=== PATIENT | female | born 1990 | race American Indian/Alaskan Native ===

== ENCOUNTER 2021-04-06 22:06 | Emergency (ER) | payer OTHER, SELFPAY ==
--- NOTE | 2021-04-06 23:13 | Emergency Department Report ---
HPI - General Chief Complaint: Psych Time Seen by Provider: 04/06/21 22:19 - HPI HPI: This is a 30-year-old -Croatian female presents to the emergency department for what appears to be a mental health evaluation. Patient says that she came by EMS after she was found wandering around on the street. Patient admits to "drinking all day" but is asking for a mental health evaluation. She also admits to being , somewhere in the first trimester. The patient is not very forthcoming with information. She has never been to this emergency d epartment previously. Patient admits to a history of schizophrenia and some nonspecific hallucinations. She denies any suicidal or homicidal ideations. ED Review of Systems ROS: Stated complaint: MH EVAL Other details as noted in HPI Comment: All other systems reviewed and negative Constitutional: denies: chills, fever Eyes: denies: eye pain, vision change ENT: denies: ear pain, throat pain Respiratory: denies: cough, shortness of breath Cardiovascular: denies: chest pain, palpitations Gastrointestinal: denies: abdominal pain, vomiting Genitourinary: denies: dysuria, discharge Musculoskeletal: denies: back pain, arthralgia Skin: denies: rash, lesions Neurological: denies: headache, weakness Psychiatric: denies: homicidal thoughts, suicidal thoughts Physical Exam - Physical Exam Physical Exam: GENERAL: The patient is well-developed well-nourished. HENT: Normocephalic. Atraumatic. Patient has moist mucous membranes. EYES: Extraocular motions are intact. NECK: Supple. Trachea is midline. CHEST/LUNGS: Clear to auscultation. There is no respiratory distress noted. HEART/CARDIOVASCULAR: Regular. There is no tachycardia. There is no murmur. ABDOMEN: Abdomen is soft, nontender. Patient has normal bowel sounds. SKIN: Skin is warm and dry. NEURO: The patient is very sleepy, but is easily arousable. She is cooperative and follows commands. MUSCULOSKELETAL: There is no tenderness or deformity. There is no limitation range of motion. ED Medical Decision Making - Lab Data Result diagrams: 04/06/21 23:03 04/06/21 23:03 - Medical Decision Making This patient presents to the emergency department via EMS after she was supposedly found wandering around on the streets. The patient said that she has been drinking all day, but her blood alcohol level came back negative. The patient also admits to being , which is consistent with the positive qualitative serum test. She denies any abdominal pain, pelvic pain, vaginal bleeding. The rest the patient's blood work has been unremarkable including CBC, metabolic panel, acetaminophen and salicylate. We do not yet have a urine sample for urinalysis and UDS. Overall the patient is not very forthcoming with information. The patient denies any suicidal or homicidal ideations. She does not yet appear to meet criteria to be made a 1013. She has been made an ED hold and will see the psychiatric team in the morning to assist with further disposition. Critical Care Time: No Critical care attestation.: If time is entered above; I have spent that time in minutes in the direct care of this critically ill patient, excluding procedure time. ED Disposition Clinical Impression: Medical clearance for psychiatric admission, , Acute psychosis, UTI (urinary tract infection) Disposition: DC/TX-65 PSY HOSP/PSY UNIT Is pt being admited?: No Condition: Stable Additional Instructions: Professional and Agency Contacts To help [facility] (16/04) [place] Crisis Line: Suicide Prevention Line: Crisis Text Line: Text START to 353809 Emergency: 911 Outpatient COMMUNITY Behavioral Health Resources: WENDY: Wendy [facility] [address], [place] [address] [facility] [address] [place] [address] Sunday thru Sunday - 8am - 5pm Call to schedule an assessment for mental health and substance abuse programs [facility]: [facility] Address: [address] [place] [address] Sunday thru Sunday- 7am-2pm [facility] Address: [address] [place] [address] Sunday thru Sunday: 8:30AM-5PM HOMELESS RESOURCES: [facility] NEED HELP? If you are in need of help or know someone who does, please contact us atinf [email or web address] call , or come to our offices at [address] [place] [address], [place] [address], Sunday-Sunday beginning at 8AM. [facility] Address: [address] [place] [address] How do I join the [facility] housing program? Our housing programs are offered based on availability. If you are looking to participate in our housing program, simply call [phone] to find out if we have available space. Since we do receive many calls, please allow up to 48 hours for one of our housing specialists to return your call. If we do not have vacancies, we suggest callingthe [facility] hotline at 211 for additional housing options. [facility] Admission from 8am to 10am Daily No intake until 09/20/20 Address: Critical [place] [address] [facility] WOMEN and FAMILY Admission Address: [address] , [place] [id number] Information needed:
[2021-04-06 23:14] LABS: Basophils % (Auto) 0.5 % (0.0-1.8); Eosinophils # (Auto) 0.1 K/mm3 (0.0-0.4); Eosinophils % (Auto) 1.1 % (0.0-4.3); Hematocrit 29.6 % (30.3-42.9); Hemoglobin 9.8 gm/dl (10.1-14.3); Lymphocytes % (Auto) 30.8 % (13.4-35.0); Mean Corpuscular HGB Conc 33 % (30-34); Mean Corpuscular Volume 69 fl (79-97); Monocytes # (Auto) 0.7 K/mm3 (0.0-0.8); Monocytes % (Auto) 10.5 % (0.0-7.3); Platelet Count 164 K/mm3 (140-440); Red Blood Count 4.28 M/mm3 (3.65-5.03); Red Cell Distribution Width 14.6 % (13.2-15.2)
[2021-04-06 23:32] LABS: Blood Urea Nitrogen 10 mg/dL (7-17); Calcium 8.3 mg/dL (8.4-10.2); Hemolysis Index 3
[2021-04-06 23:34] LABS: BUN/Creatinine Ratio 17
[2021-04-07 08:21] LABS: Bilirubin,Urine NEG (Negative); Blood,Urine NEG (Negative); Color,Urine Yellow (Yellow); Mucus,Urine FEW /HPF; Protein,Urine <15 mg/dL mg/dL (Negative)
[2021-04-07 08:28] LABS: Amphetamine Screen,Urine Negative; Benzodiazepines Screen,Urine Negative; Cannabinoid Screen,Urine Negative; Methadone Screen,Urine Negative; Opiate Screen,Urine Negative
[2021-04-07 08:52] LABS: Cocaine Screen,Urine PRESUMPTIVE POSITIVE
--- NOTE | 2021-04-07 12:00 | Consultation ---
History of Present Illness - Reason for Consult Consult date: 04/07/21 Reason for consult: Mental evaluation - History of Present Psychiatric Illness Per Ed Note: This is a 30-year-old -Finnish female presents to the emergency department for what appears to be a mental health evaluation. Patient says that she came by EMS after she was found wandering around on the street. Patient admits to "drinking all day" but is asking for a mental health evaluation. She also admits to being , somewhere in the first trimester. The patient is not very forthcoming with information. She has never been to this emergency department previously. Patient admits to a history of schizophrenia and some nonspecific hallucinations. She denies any suicidal or homicidal ideations. Nanci Salinas is a 30 year olf female with a history of Schizophrenia, Bipolar, Borderline Personality Disorder who presents to the ED for mental health evaluation. In my interview with the patient, she was irritable and guarded. The patient reports that she came to the hospital because she is and does not have a place to go. The patient states that she did not want to continue talking and that she needs a adult daycare coordinator. The patient walked out of the interview; unable to assess si/hi/avhs. PAST PSYCHIATRIC HISTORY Diagnoses: Schizophrenia, Bipolar, Borderline Personality Disorder Suicide attempts or Self-harm behavior: Denies Prior psychiatric hospitalizations:yes Substance Abuse history: Denies Previous psychiatric medications tried: Denied Outpatient treatment: Denied SOCIAL HISTORY Marital Status: Single Living Arrangements: unknown Employment Status: unemployed Access to guns/weapons: Denied Education: 11th grade History of Abuse: Denied Legal History: None reported REVIEW OF SYSTEMS Constitutional: Negative for weight loss ENT: Negative for stridor Respiratory: Negative for cough or hemoptysis All other systems reviewed and are negative MENTAL STATUS EXAMINATION General Appearance and Behavior: Age appropriate, dressed appropriately, calm and cooperative Cooperation: Participating Psychomotor Behavior: psychomotor normal Mood: Irritable Affect and affective range: Congruent with stated mood Thought Process: goal directed Thought Content: with normal limits Speech: Normal volume, Regular rate and rhythm, Intellectual Functioning: Average Suicidal Ideation: Unable to assess Homicidal Ideation: Unable to assess Hallucinations: Unable to assess Delusions: None elicited Impulse Control: Questionable Insight and Judgment: Limited insight and judgment, Memory: Normal Attention: Distractible Orientation: Alert, oriented Assessment and Plan (1) Schizophrenia- F20.9 Treatment plan Risks, benefits and alternatives of medications discussed with the patient, questions answered and consent obtained from patient. PSYCHOTHERAPY: Supportive psychotherapy provided MEDICAL: Per primary team DELIRIUM PRECAUTIONS: Please re-orient patient frequently, keep lights on during the day, and minimize benzodiazepines and opiates as these medications could worsen patient's confusion. DISPUTE COORDINATOR: Per medical team DISPOSITION: Recommend acute inpatient psychiatric hospitalization at this time. FOLLOW-UP: Will sign follow Thank you for the consult. Please contact with any questions and/or concerns. Case staffed with Dr. Browning Medications and Allergies Allergies Allergy/AdvReac Type Severity Reaction Status Date / Time No Known Allergies Allergy Unverified 04/06/21 23:34 Active Meds: Active Medications Cephalexin (Cephalexin 500 Mg Cap) 500 mg PO BID [facility]; Protocol Stop: 04/12/21 11:59 Mental Status Exam - Vital signs Last Vital Signs Temp 98.0 F 04/07/21 11:26 Pulse 68 04/07/21 11:26 Resp 20 04/07/21 11:26 BP 110/63 04/07/21 11:26 Pulse Ox 100 04/07/21 11:26 Results Result Diagrams: 04/06/21 23:03 04/06/21 23:03 Abnormal lab results 04/06/21 04/06/21 04/06/21 Range/Units 23:03 23:03 23:18 Hgb 9.8 L (10.1-14.3) gm/dl Hct 29.6 L (30.3-42.9) % MCV 69 L (79-97) fl MCH 23 L (28-32) pg Navarro % (Auto) 10.5 H (0.0-7.3) % Sodium 136 L (137-145) mmol/L Calcium 8.3 L (8.4-10.2) mg/dL Urine WBC (Auto) (0.0-6.0) /HPF Salicylates < 0.3 L (2.8-20.0) mg/dL Acetaminophen (10.0-30.0) ug/mL 04/06/21 04/07/21 Range/Units 23:18 Unknown Hgb (10.1-14.3) gm/dl Hct (30.3-42.9) % MCV (79-97) fl MCH (28-32) pg Navarro % (Auto) (0.0-7.3) % Sodium (137-145) mmol/L Calcium (8.4-10.2) mg/dL Urine WBC (Auto) 23.0 H (0.0-6.0) /HPF Salicylates (2.8-20.0) mg/dL Acetaminophen 5.0 L (10.0-30.0) ug/mL All other labs normal.
[2021-04-07] MEDS: cephALEXin 500 MG CAP PO SCH (12:08)
[2021-04-08] MEDS: cephALEXin 500 MG CAP PO SCH ×2 (00:27→12:22)
--- NOTE | 2021-04-08 02:43 | Ultrasound Report ---
ULTRASOUND OBSTETRIC REASON FOR EXAM: pelvic pain, preg TECHNIQUE: Transabdominal and transvaginal ultrasound was performed to evaluate a first trimester pre gnancy. COMPARISON: None available. FINDINGS: FINDINGS: The pole, yolk sac, and gestational sac are normal in appearance. [place]-rump length: 35.0 mm. This corresponds with a gestational age of 10 weeks 3 days. heart rate: 152 bpm Perigestational hemorrhage: No evidence of perigestational hemorrhage on the provided images. MATERNAL FINDINGS: Uterus is otherwise unremarkable. Neither ovary is well visualized. However, no significant abnormali ty in either adnexa. No free fluid. IMPRESSION: Viable intrauterine . Gestational age is 10 weeks 3 days by ultrasound. Recommend clinical s creening and ultrasound follow-up in the second trimester to screen for anomalies. Signer Name: Lorne Chavez MD Signed: 04/08/2021 2:39 AM Workstation Name: [id number]
--- NOTE | 2021-04-08 10:20 | Progress Note ---
Subjective - Reason for Consult Consult date: 04/08/21 Reason for consult: hx of bipolar - Chief Complaint Chief complaint: The patient was seen today, she is a/o x 3. She is calm, cooperative and pleasant. She says she came to the hospital because she was hurting. The patient says she is homeless and was living with her brother, but says she didn't like what was going on there. She denies SI/HI or hallucinations of any kind. She says she has a history of schizophrenia and is was on geodon and depakote prior to getting . She gave me permission to call her mother and father. The patient says her mother is in [place], and she is hoping her mother will get her a ticket to go back there. I called her mother's number but did not get an answer. I also called the father. He answered the phone and says the patient was homeless and that he would call her brother. He quickly ended the call REVIEW OF SYSTEMS Constitutional: Negative for weight loss ENT: Negative for stridor Respiratory: Negative for cough or hemoptysis All other systems reviewed and are negative MENTAL STATUS EXAMINATION General Appearance and Behavior: Age appropriate, dressed appropriately, calm and cooperative, pleasant Cooperation: Participating Psychomotor Behavior: psychomotor normal Mood: "good" Affect and affective range: Congruent with stated mood Thought Process: goal directed Thought Content: with normal limits Speech: Normal volume, Regular rate and rhythm, Intellectual Functioning: Average Suicidal Ideation: Denies Homicidal Ideation: Denies Hallucinations: Denies Delusions: None elicited Impulse Control: Limited Insight and Judgment: Limited insight and judgment, Memory: Normal Attention: Attentive Orientation: Alert, oriented x 3 Assessment and Plan (1) Schizophrenia- F20.9 Treatment plan D/c 1013 Follow up with director selection and administration or outpatient psych for med management Risks, benefits and alternatives of medications discussed with the patient, radha mar answered and consent obtained from patient. PSYCHOTHERAPY: Supportive psychotherapy provided MEDICAL: Per primary team DELIRIUM PRECAUTIONS: Please re-orient patient frequently, keep lights on during the day, and minimize benzodiazepines and opiates as these medications could worsen patient's confusion. DATABASE SECURITY EXPERT: Per medical team DISPOSITION: Do not recommend acute inpatient psychiatric hospitalization at this time. The diecast machine operator to place resources on the chart FOLLOW-UP: Will sign off Thank you for the consult. Please contact with any questions and/or concerns. Case staffed with Dr. Browning Mental Status Exam - Vital signs Last Vital Signs Temp 98.1 F 04/08/21 02:19 Pulse 61 04/08/21 02:19 Resp 16 04/08/21 02:19 BP 100/62 04/08/21 02:19 Pulse Ox 100 04/08/21 02:19
[2021-04-08 12:31] VITALS: BP 101/62
== END 2021-04-08 13:10 ==
LOC: ED 22:06 → EEVIPCON 22:06 → ED 04-08 13:10
DX: O99.341 Other mental disorders complicating pregnancy, first trimester (principal); O23.41 Unspecified infection of urinary tract in pregnancy, first trimester; Z20.822 Contact with and (suspected) exposure to COVID-19; F53.1 Puerperal psychosis; Z04.6 Encounter for general psychiatric examination, requested by authority; Z3A.10 10 weeks gestation of pregnancy
CPT/HCPCS: 36415; 76817; 80048; 80307; 81001; 84703; 85025; 87086; 99285; U0003; 80320; G0480